=== PATIENT | female | born 1965 | race Caucasian/White ===

== ENCOUNTER 2019-12-24 12:39 | Day surgery (SDC) | payer BC ==
[~2019-12-24] VITALS: Ht 162.6 cm; Wt 89.7 kg
[~2019-12-24 12:39] MED LIST: ABILIFY MYCITE5 MG PO; B SUPREME PO; BIOGEST PO; CORTISOL MANAGER PO; DULO60 PO; Fish Oil 10001000 MG PO; Hydrocortisone5 MG PO; MULTIVITAMINS1 EAC3 PO; NYST100000 PO; PROGESTERONE200 M1 PO; VITAMIN D33000 UNI1 PO; WP THYROID81.25 MG PO; [UNRECOGNIZED DRUG - OTHER] PO; [UNRECOGNIZED DRUG - OTHER] PO; [UNRECOGNIZED DRUG - OTHER] PO; [UNRECOGNIZED DRUG - OTHER] PO; [UNRECOGNIZED DRUG - OTHER] PO
== END 2019-12-24 15:15 | disposition home or self-care (01) ==
LOC: ORSCSDS 12:39
PROVIDERS: Surgery
PROC: 0DJD8ZZ Inspection of Lower Intestinal Tract, Via Natural or Artificial Opening Endoscopic (ICD-10-PCS; principal; 2019-12-24 14:15)
DX: Z12.11 Encounter for screening for malignant neoplasm of colon (principal); Z80.0 Family history of malignant neoplasm of digestive organs; E03.9 Hypothyroidism, unspecified; E66.9 Obesity, unspecified; Z68.33 Body mass index [BMI] 33.0-33.9, adult; Z79.899 Other long term (current) drug therapy
CPT/HCPCS: J2704; J7120

== ENCOUNTER 2021-01-17 09:20 | Emergency (ER) | payer BC ==
[~2021-01-17] VITALS: Ht 162.6 cm; Wt 97.5 kg
== END 2021-01-17 11:41 | disposition home or self-care (01) ==
LOC: ER 09:20
DX: S80.11XA Contusion of right lower leg, initial encounter (principal); Z79.899 Other long term (current) drug therapy; W01.198A Fall on same level from slipping, tripping and stumbling with subsequent striking against other object, initial encounter
CPT/HCPCS: 93971; 99283-25

== ENCOUNTER → 2024-02-18 | Outpatient (CLI) | payer BC ==
[2024-02-18 19:34] LABS: C DIFFICILE DNA NEGATIVE (Negative)
[2024-02-22 12:46] LABS: OVA AND PARASITE,FECAL INTERP Negative (Negative)
== END | disposition home or self-care (01) ==
LOC: LAB SHORT 17:00 → LAB 17:00
PROVIDERS: Nurse Practitioner Acute Care
DX: R19.7 Diarrhea, unspecified (principal); R10.9 Unspecified abdominal pain
CPT/HCPCS: 87015; 87045; 87046; 87177; 87205; 87209; 87493; 87899

== ENCOUNTER 2024-04-24 12:04 | Day surgery (SDC) | payer BC ==
[~2024-04-24 12:04] MED LIST changes: +Lactated Ringer's 1,000 ML IV ONE
[2024-04-24] MEDS ORDERED: PRAZ2 (12:29)
[2024-04-24] MEDS ORDERED: SERT100 (12:29)
[2024-04-24] MEDS ORDERED: Lactated Ringer's 1,000 ML IV ONE (12:33)
[2024-04-24] MEDS ORDERED: Lidocaine HCl 1% 30 ML SDV ONE (13:18)
[2024-04-24] MEDS ORDERED: propofoL 50 ML IV ONE (13:18)
[2024-04-24 14:27] VITALS: BP 111/76
== END 2024-04-24 14:33 | disposition home or self-care (01) ==
LOC: ORSCSDS 12:04
PROVIDERS: Internal Medicine Gastroenterology
PROC: 0DBH8ZX Excision of Cecum, Via Natural or Artificial Opening Endoscopic, Diagnostic (ICD-10-PCS; principal; 2024-04-24 13:45)
PROC: 0DBE8ZX Excision of Large Intestine, Via Natural or Artificial Opening Endoscopic, Diagnostic (ICD-10-PCS; principal; 2024-04-24 13:45)
PROC: 0DBK8ZX Excision of Ascending Colon, Via Natural or Artificial Opening Endoscopic, Diagnostic (ICD-10-PCS; principal; 2024-04-24 13:45)
DX: R19.7 Diarrhea, unspecified (principal); D12.0 Benign neoplasm of cecum; D12.2 Benign neoplasm of ascending colon; Z80.0 Family history of malignant neoplasm of digestive organs; G47.33 Obstructive sleep apnea (adult) (pediatric); E06.3 Autoimmune thyroiditis; Z79.899 Other long term (current) drug therapy; Z68.37 Body mass index [BMI] 37.0-37.9, adult; Z79.85 Long-term (current) use of injectable non-insulin antidiabetic drugs
CPT/HCPCS: 88305; J2704; J7120